=== PATIENT | male | born 1955 | race Caucasian/White ===

== ENCOUNTER 2019-12-17 10:15 | Outpatient (RCR) | payer MEDICAID, SELFPAY | END 2020-03-25 15:58 | disposition home or self-care (01) | LOC: HO.WCC 10:15 | PROVIDERS: PCP Family Medicine; Visit Provider Surgery | DX: I87.332 Chronic venous hypertension (idiopathic) with ulcer and inflammation of left lower extremity (principal); L97.822 Non-pressure chronic ulcer of other part of left lower leg with fat layer exposed; L20.9 Atopic dermatitis, unspecified; Z79.899 Other long term (current) drug therapy | CPT/HCPCS: 11042; 11045; 15271; 99212; Q4186 ==

== ENCOUNTER 2020-12-15 13:17 | Outpatient (RCR) | payer MEDICAID, SELFPAY | END 2021-03-15 13:28 | disposition home or self-care (01) | LOC: HO.WCC 13:17 | PROVIDERS: PCP Family Medicine; Visit Provider Surgery | DX: I87.312 Chronic venous hypertension (idiopathic) with ulcer of left lower extremity (principal); L97.823 Non-pressure chronic ulcer of other part of left lower leg with necrosis of muscle; I73.9 Peripheral vascular disease, unspecified; I10 Essential (primary) hypertension; Z79.899 Other long term (current) drug therapy; Z87.891 Personal history of nicotine dependence | CPT/HCPCS: 11042; 11045; 15271; 15272; 29580; 29581; 99212; Q4101 ==

== ENCOUNTER 2023-04-04 12:36 | Outpatient (RCR) | payer MEDICARE, MEDICAID, SELFPAY | END 2023-08-07 09:00 | disposition home or self-care (01) | LOC: HO.WCC 12:36 | PROVIDERS: Visit Provider Surgery | DX: I87.313 Chronic venous hypertension (idiopathic) with ulcer of bilateral lower extremity (principal); L97.822 Non-pressure chronic ulcer of other part of left lower leg with fat layer exposed; L97.522 Non-pressure chronic ulcer of other part of left foot with fat layer exposed; L97.812 Non-pressure chronic ulcer of other part of right lower leg with fat layer exposed; L97.311 Non-pressure chronic ulcer of right ankle limited to breakdown of skin; L97.312 Non-pressure chronic ulcer of right ankle with fat layer exposed; Z79.899 Other long term (current) drug therapy | CPT/HCPCS: 11042; 11045; 15271; 15272; 15273; 15275; 29581; 97597; 97598; 99212; 99213; 99214; Q4101 ==